=== PATIENT | female | born 1995 | race Two or more races ===

== ENCOUNTER 2019-09-06 18:02 | Emergency (ER) | payer OTHER ==
[~2019-09-06] VITALS: Ht 165.1 cm; Wt 59.1 kg
[2019-09-06] MEDS ORDERED: MAGNESIUM CITRATE 300 ML ORAL SOLUTION PO ONE (21:15)
[2019-09-06] MEDS ORDERED: MINERAL OIL 133 ML ENEMA PR ONE (22:15)
[2019-09-06 22:38] VITALS: BP 120/82
== END 2019-09-06 22:42 | disposition home or self-care (01) ==
LOC: EMS 18:02
DX: K59.00 Constipation, unspecified (principal)
CPT/HCPCS: 74018